=== PATIENT | female | born 1965 | race Caucasian/White ===

== ENCOUNTER 2019-07-04 12:23 | Emergency (ER) | payer SELFPAY ==
[~2019-07-04] VITALS: Ht 162.6 cm; Wt 93.0 kg
[2019-07-04] MEDS ORDERED: OMEPRAZOLE20 M2 PO (14:44)
[2019-07-04] MEDS ORDERED: LIPITOR20 M1 PO (14:45)
[2019-07-04 14:47] VITALS: BP 125/86
[2019-07-04] MEDS ORDERED: TYLENOL & COD12.5 ML PO (15:53)
== END 2019-07-04 14:52 | disposition home or self-care (01) | DRG 948 ==
LOC: ED 12:23
DX: G89.18 Other acute postprocedural pain (principal); E11.9 Type 2 diabetes mellitus without complications